=== PATIENT | female | born 1975 | race Caucasian/White ===

== ENCOUNTER → 2016-04-29 17:44 | Outpatient (CLI) | payer OTHER ==
[2015-10-07 12:46] VITALS: BMI 49.2
[~2016-04-29 17:44] MED LIST: ABILIFY15 MG PO; GLUCOPHAGE500 MG PO; KLONOPIN0.5 MG PO; PRISTIQ100 MG PO; PROTONIX40 MG PO; TOVIAZ8 MG PO; VITAMIN D250000 UNIT PO; ZOCOR20 MG PO
== END | disposition home or self-care (01) ==
LOC: D.LABREF 17:44
DX: N39.0 Urinary tract infection, site not specified (principal)

== ENCOUNTER 2017-06-26 09:43 | Day surgery (SDC) | payer OTHER ==
--- NOTE | ~2017-06-26 | OP ---
PATIENT NAME: DEEPA ALEX MEDICAL RECORD: [id number] :71 LOCATION:[facility] ADMISSION DATE: SURGEON: GIL LUCERO DO DATE OF OPERATION: 06/26/2017 PROCEDURE: Colonoscopy with polypectomy. INDICATIONS FOR PROCEDURE: Change in bowel habits, constipation. SCOPE: Olympus video pediatric colonoscope. MEDICATIONS: Propofol 400 mg IV per anesthesia. WITHDRAWAL TIME: 9 minutes. ESTIMATED BLOOD LOSS: Minimal. COMPLICATIONS: None. FINDINGS: Informed consent was given. The patient was made comfortable with the above medication. After reaching an adequate level of sedation by slow IV push, the patient was placed on her left side. A digital rectal examination was performed and was normal. The endoscope was then advanced under direct visualization through the rectum to the terminal ileum. The endoscope was slowly withdrawn and mucosa was carefully examined. There was a single polyp visualized on today's examination. It was located in the cecum. It was a benign appearing sessile polyp which measured approximately 5-6 mm in diameter. It was removed using hot forceps in 1 piece and completely retrieved. There were a few small mouth diverticula located in the sigmoid colon. Retroflexion was performed in the rectum with a normal appearing rectal wall. The endoscope was withdrawn from the patient. The patient tolerated the procedure well and there were no complications. IMPRESSION: 1. Sigmoid diverticulosis of mild severity. 2. Single benign appearing sessile polyp removed from the cecum. PLAN AND RECOMMENDATIONS: 1. Discharge home when recovery parameters are met. 2. High fiber diet. 3. Continue current medications. 4. Supplement diet with fiber 1-2 tablespoons daily. 5. Trial of Amitiza 24 mcg b.i.d. 6. Recall colonoscopy will be dependent on results of polyp removed today, but I anticipate this being in 5 years. TRANSINT:[id number] Voice Confirmation ID: [id number] DOCUMENT ID: [id number] OPERATIVE REPORT [id number] DEEPA ALEX GIL LUCERO DO at 0852 CC: [id number] DICTATION DATE: 06/26/17 1253 DRILLER HAND: 06/26/17 13[address] [facility] 06/26/17 [id number] [place] [address]
[2017-06-26] MEDS ORDERED: VESICARE10 MG PO (10:38)
[2017-06-26] MEDS ORDERED: LAMICTAL100 MG PO (10:39)
[2017-06-26 10:45] VITALS: BMI 35.9
[2017-06-26 11:34] LABS: HCG URINE NEGATIVE (NEGATIVE)
[2017-06-26 11:40] LABS: HEMATOCRIT 39.7 % (36.0-48.0); HEMOGLOBIN 13.5 g/dL (12-16); MCV 94.1 fL (80.0-100.0); MEAN PLATELET VOLUME 10.2 fL (7.4-10.4); RBC 4.22 10x6/uL (4.00-5.40); RDW 12.9 % (11.5-14.5); WBC 6.6 10x3/uL (4.8-10.8)
[2017-06-26 11:57] LABS: HCG SERUM NEGATIVE (NEGATIVE)
== END 2017-06-26 13:45 | disposition home or self-care (01) ==
LOC: D.OPS 09:43
PROVIDERS: Anesthesiology; Internal Medicine Gastroenterology
DX: K59.00 Constipation, unspecified (principal); K57.30 Diverticulosis of large intestine without perforation or abscess without bleeding; D12.0 Benign neoplasm of cecum; E11.9 Type 2 diabetes mellitus without complications; G47.30 Sleep apnea, unspecified; K21.9 Gastro-esophageal reflux disease without esophagitis; Z01.812 Encounter for preprocedural laboratory examination